=== PATIENT | male | born 1950 | race Hispanic/Latino ===

== ENCOUNTER → 2022-07-08 | Outpatient (CLI) | payer MEDICARE ==
[~2022-07-08] MED LIST: ALLO100T PO; ATOR10TA69 PO; FLUD.1 PO; FOLI1 PO; GLIP5TAB11 PO; LISI40TA9 PO; PIOG15TA6 PO; PRED5TAB PO
[2022-07-08 12:40] LABS: CHOLESTEROL 158 mg/dL (<200); HDL CHOLESTEROL 45 mg/dL (29-71); LDL DIRECT 92 mg/dL (0-99); TRIGLYCERIDES 74 mg/dL (30-200)
== END | disposition home or self-care (01) ==
LOC: LAB 10:00
PROVIDERS: ATTEND Student in an Organized Health Care Education/Training Program
DX: E78.2 Mixed hyperlipidemia (principal)
CPT/HCPCS: 36415; 80061

== ENCOUNTER → 2023-01-06 | Outpatient (CLI) | payer MEDICARE ==
[2023-01-06 12:40] LABS: CHOLESTEROL 126 mg/dL (<200); HDL CHOLESTEROL 28 mg/dL (29-71); LDL DIRECT 72 mg/dL (0-99); TRIGLYCERIDES 170 mg/dL (30-200)
== END | disposition home or self-care (01) ==
LOC: LAB 08:20
PROVIDERS: ATTEND Student in an Organized Health Care Education/Training Program
DX: E78.2 Mixed hyperlipidemia (principal)
CPT/HCPCS: 36415; 80061

== ENCOUNTER → 2023-07-11 | Outpatient (CLI) | payer MEDICARE ==
[~2023-07-11] MED LIST changes: -GLIP5TAB11 PO; +GLIP5TAB15 PO
[2023-07-11 13:00] LABS: CHOLESTEROL 196 mg/dL (<200); HDL CHOLESTEROL 42 mg/dL (29-71); LDL DIRECT 108 mg/dL (0-99); TRIGLYCERIDES 206 mg/dL (30-200)
== END | disposition home or self-care (01) ==
LOC: LAB 09:23
PROVIDERS: ATTEND Student in an Organized Health Care Education/Training Program
DX: E78.2 Mixed hyperlipidemia (principal)
CPT/HCPCS: 36415; 80061

== ENCOUNTER → 2023-09-14 | Outpatient (CLI) | payer MEDICARE ==
[2023-09-14 12:28] LABS: CHOLESTEROL 145 mg/dL (<200); HDL CHOLESTEROL 43 mg/dL (29-71); LDL DIRECT 79 mg/dL (0-99); TRIGLYCERIDES 173 mg/dL (30-200)
== END | disposition home or self-care (01) ==
LOC: LAB 08:47
PROVIDERS: ATTEND Student in an Organized Health Care Education/Training Program
DX: E78.2 Mixed hyperlipidemia (principal)
CPT/HCPCS: 36415; 80061